=== PATIENT | male | born 1950 | race Caucasian/White ===

== ENCOUNTER 2017-02-16 14:02 | Emergency (ER) | payer OTHER, MEDICAID ==
[2017-02-16 14:19] VITALS: BMI 32.9
[2017-02-16] MEDS ORDERED: ASPIRIN PO ONE (14:19)
[2017-02-16] MEDS ORDERED: NITROSTAT SL PRN (14:19)
[2017-02-16] MEDS ORDERED: ASPIRIN 81 MG CHEWTAB ONE (14:22)
[2017-02-16] MEDS ORDERED: NS 1000 ML 1,000 ML ONE (14:26)
[2017-02-16 14:31] LABS: BASOPHILS # (AUTO) 0.1 X10^3/uL (0.0-0.1); BASOPHILS % (AUTO) 0.7 % (0.2-1.0); EOSINOPHILS # (AUTO) 0.1 x10^3/uL (0.0-0.2); EOSINOPHILS % (AUTO) 0.7 % (0.9-2.9); HEMATOCRIT 41.5 % (42.0-54.0); HEMOGLOBIN 14.1 g/dL (13.5-18.0); LYMPHOCYTES # (AUTO) 2.8 X10^3/uL (1.3-2.9); LYMPHOCYTES % (AUTO) 18.8 % (21.0-51.0); MEAN CORPUSCULAR HEMOGLOBIN 29.3 pg (27.0-34.0); MEAN CORPUSCULAR HGB CONC 34.1 g/dL (33.0-35.0); MEAN CORPUSCULAR VOLUME 85.9 fL (80.0-100.0); MEAN PLATELET VOLUME 7.2 fL (7.4-11.0); MONOCYTES # (AUTO) 0.8 x10^3/uL (0.3-0.8); MONOCYTES % (AUTO) 5.2 % (0.0-13.0); NEUTROPHILS % (AUTO) 74.6 % (42.0-75.0); PLATELET COUNT 335 X10^3/uL (150.0-450.0); RED BLOOD COUNT 4.83 X10^6/uL (4.7-6.0); RED CELL DISTRIBUTION WIDTH 13.4 % (11.6-16.5); WHITE BLOOD COUNT 14.7 X10^3/uL (3.6-10.0)
[2017-02-16] MEDS ORDERED: ATIVAN INJ 2 MG VIAL IVP ONE (14:40)
[2017-02-16] MEDS ORDERED: ATIVAN INJ 2 MG VIAL ONE (14:42)
[2017-02-16 14:46] LABS: BLOOD UREA NITROGEN 19 mg/dL (7-18); CALCIUM 9.7 mg/dL (8.5-10.1); CARBON DIOXIDE 21.5 mmol/L (21-32); CHLORIDE 99 mmol/L (98-107); COR NA(FOR HYPERGLY) 143 mmol/L (136-145); CREATININE 1.33 mg/dL (0.70-1.30); GLUCOSE 370 mg/dL (65-99); SODIUM 137 mmol/L (136-145); TROPONIN I < 0.02 ng/mL (0-1.5); eGFR BLACK RACES > 60 (>60); eGFR NON BLACK RACES 57 (>60)
[2017-02-16 14:50] LABS: ALANINE AMINOTRANSFERASE 47 Units/L (12-78); ALBUMIN 4.1 g/dL (3.4-5.0); ALKALINE PHOSPHATASE 80 Units/L (46-116); ASPARTATE AMINO TRANSFERASE 19 Units/L (15-37); CREATINE KINASE 45 Units/L (39-308); CREATINE KINASE MB < 1.0 ng/mL (0-4.0); MAGNESIUM 1.4 mg/dL (1.7-2.9); TOTAL PROTEIN 8.1 g/dL (6.4-8.2)
--- NOTE | 2017-02-16 14:51 | RAD ---
HISTORY: Chest pain Study: Single-view chest Comparison: July 12 2015 Findings: The trachea is midline. The cardiac silhouette is unremarkable. The lungs are clear without focal infiltrate or effusion. The bony thorax is unremarkable. IMPRESSION: 1. No acute cardiopulmonary disease. Reported By:
[2017-02-16 14:52] LABS: CKMB % 2.2 % (<4)
[2017-02-16] MEDS ORDERED: NS 1000 ML 1,000 ML IV SCH (15:00)
[2017-02-16 15:02] LABS: D DIMER 178 ng/mL (0-400)
[2017-02-16] MEDS ORDERED: ZOFRAN INJ 4 MG VIAL IVP ONE (15:02)
[2017-02-16] MEDS ORDERED: MORPHINE SULFATE INJ 2 MG IVP ONE (15:02)
[2017-02-16] MEDS ORDERED: ZOFRAN INJ 4 MG VIAL ONE (15:04)
[2017-02-16] MEDS ORDERED: MORPHINE SULFATE INJ 2 MG ONE (15:04)
--- NOTE | 2017-02-16 15:36 | DR.CP ---
HPI - Time Seen Time seen: 15:30 - PCP Primary Care Physician: edi - HPI Comment HPI Comment: PATIENT TOOK 81MG ASPRIN THIS AM. PAIN WAS GETTING WORSE AT HOME SO PATIENT CAME TO ED. NO FEVER. - Complaint Chief Complaint Doctor Comments: PRECORDIAL CHEST PRESSURE WITH SOB, WEAKNESS AND TINGLING IN FINGERS 1 HOUR AGO. Chief Complaint:: patient stated he was chest pain and both arms were hurting since he ate some bad turkey about a hour ago - Reviewed Nurses Notes Review: Yes - Source History Provided: Patient - Mode of Arrival Mode of Arrival: Ambulatory - Timing Onset of Chief Complaint: 02/16/17 Came on: Suddenly - Duration Duration: Constant Duration: Hours - Location Chest Pain Radiation Location: None - Context Onset: At rest Cardiac Risk Factors: Family History, Hyperlipidemia, HTN History of: Angina, Aspirin in last 24 hours (81MG) Prehospital Care: ASA (81MG AT HOME) - Quality Quality: Pressure like, Heavy - Severity Severity: Moderate - Modifying Factors Worsens: Nothing Impoves: NTG - Associated Signs and Symptoms Associated Signs and Symptoms: Shortness of Breath, Palpitations, Nausea/ Vomiting PMH - PMH Past Medical History: Yes Past Medical History: CVA, Diabetes, Hypertension Past Surgical History: Yes Surgical History: Unknown - Family History History of Family Medical Conditions: No - Social History Does patient currently use any type of tobacco product: No Have you used tobacco products in the last 12 months: No Type of Tobacco Use: None Does any household member use tobacco: No Alcohol Use: None Lives With: Family Lives Where: Home - infectious screening In the last 2 months have you had wt loss of >10#?: NO Have you had fever, night sweats or hemotysis?: No Have you traveled outside the country in the last 6 months?: No Isolation: Standard ROS - Review of Systems Constitutional: Weakness, Fatigue. negative: Chills, Diaphoresis Eyes: No Symptoms Reported. negative: Eye Pain, Discharge ENTM: negative: Ear Pain, Nose Discharge, Nose Congestion, Throat Pain Respiratoy: Short of Breath. negative: Productive Cough, Non-Productive Cough, Wheezing, Hemoptysis Cardiovascular: Chest Pain, Palpitations. negative: Edema Gastrointestinal/Abdominal: Nausea. negative: Abdominal Pain, Constipation, Diarrhea, Vomiting Genitourinary: No Symptoms Reported. negative: Dysuria, Frequency, Hematuria Neurological: Weakness, Dizziness. negative: Headache Musculoskeletal: Muscle Pain Integumentary: No Symptoms Reported Hematologic/Lymphatic: No Symptoms Reported Endocrine: No Symptoms Reported All Other Systems: Reviewed and Negative PE - Vitals Vitals: Temperature 98.6 F Pulse Rate [Left Brachial] 107 Pulse Rate 137 Respiratory Rate 17 Blood Pressure [Left Arm] 160/86 Blood Pressure [Right Arm] 122/66 Blood Pressure 170/85 O2 Sat by Pulse Oximetry 95 - General Limitations: No Limitations General Appearance: Alert, Other (NO RESPIRATORY DISTRESS AT REST.) - Head Head Exam: Atraumatic - Eyes Eye exam: Normal Appearance, PERRL, EOMI. negative: Scleral Icterus, Conjunctival Injection, Nystagmus, Periorbital Swelling, Periorbital Tenderness - ENT ENT Exam: Normal Oropharynx, Normal External Ear Exam, TM's Normal Bilaterally - Chest Chest Inspection: Symmetric Chest Wall Rise - Respiratory Respiratory Exam: Normal Lung Sounds Bilat Respiratory Exam: Bilateral Rhonchi, Lower Rhonchi - Cardiovascular Cardiovascular Exam: Regular Rate, Tachycardia, Normal Heart Sounds Pulse: Normal, Radial, Femoral Edema: Normal - Abdominal Exam Abdominal Exam: Normal Bowel Sounds, Soft. negative: Tenderness - Extremities Extremities Exam: Normal Inspection - Back Back Exam: Normal Inspection - Neurologic Neurological Exam: Alert, Oriented X3, CN II-XII Intact, Normal Gait, Reflexes Normal. negative: Motor Sensory Deficit - Psychiatric Psychiatric Exam: Anxious - Skin Skin Exam: Normal Color MDM - Additional Information Additional Information Obtained From: Family - Differential Diagnosis Differential Diagnosis: Angina, CHF, Myocardial Infarction, Pericarditis, Pneumonia, Pneumothorax Course - Treatment Treatment: SEE ORDERS - Consultation Consultation Comments: DISCUSS PATIENT WITH DR. ORELLANA, [place], [facility]. HE ACCEPTED PATIENT FOR TRANSFER TO [facility]. - Education/Counseling Education/Counseling: Patient, Family, Education Educated On: Treatment, Diagnosis ROR - Labs Reviewed Laboratory Results Reviewed?: Yes Result Diagrams: 02/16/17 14:15 02/16/17 14:15 Laboratory: WBC 14.7 X10^3/uL (3.6-10.0) H 02/16/17 14:15 RBC 4.83 X10^6/uL (4.7-6.0) 02/16/17 14:15 Hgb 14.1 g/dL (13.5-18.0) 02/16/17 14:15 Hct 41.5 % (42.0-54.0) L 02/16/17 14:15 MCV 85.9 fL (80.0-100.0) 02/16/17 14:15 MCH 29.3 pg (27.0-34.0) 02/16/17 14:15 MCHC 34.1 g/dL (33.0-35.0) 02/16/17 14:15 RDW 13.4 % (11.6-16.5) 02/16/17 14:15 Plt Count 335 X10^3/uL (150.0-450.0) 02/16/17 14:15 MPV 7.2 fL (7.4-11.0) L 02/16/17 14:15 Neut % 74.6 % (42.0-75.0) 02/16/17 14:15 Lymph % 18.8 % (21.0-51.0) L 02/16/17 14:15 Smyth % 5.2 % (0.0-13.0) 02/16/17 14:15 Eos % 0.7 % (0.9-2.9) L 02/16/17 14:15 Baso % 0.7 % (0.2-1.0) 02/16/17 14:15 Neut # 11.0 x10^3/uL (2.2-4.8) H 02/16/17 14:15 Lymph # 2.8 X10^3/uL (1.3-2.9) 02/16/17 14:15 Smyth # 0.8 x10^3/uL (0.3-0.8) 02/16/17 14:15 Eos # 0.1 x10^3/uL (0.0-0.2) 02/16/17 14:15 Baso # 0.1 X10^3/uL (0.0-0.1) 02/16/17 14:15 Absolute Nucleated RBC 0.0 /100WBC 02/16/17 14:15 INR Target Range - 02/16/17 14:15 INR 0.99 (0.8-1.3) 02/16/17 14:15 PTT 30.9 SECONDS (22.9-36.5) 02/16/17 14:15 PTT Comment - 02/16/17 14:15 D-Dimer 178 ng/mL (0-400) 02/16/17 14:15 Sodium 137 mmol/L (136-145) 02/16/17 14:15 Corrected Sodium 143 mmol/L (136-145) 02/16/17 14:15 Potassium 3.9 mmol/L (3.5-5.1) 02/16/17 14:15 Chloride 99 mmol/L (98-107) 02/16/17 14:15 Carbon Dioxide 21.5 mmol/L (21-32) 02/16/17 14:15 BUN 19 mg/dL (7-18) H 02/16/17 14:15 Creatinine 1.33 mg/dL (0.70-1.30) H 02/16/17 14:15 Est GFR (MDRD) Af Amer > 60 (>60) 02/16/17 14:15 Est GFR (MDRD) Non-Af 57 (>60) L 02/16/17 14:15 Glucose 370 mg/dL (65-99) H 02/16/17 14:15 Calcium 9.7 mg/dL (8.5-10.1) 02/16/17 14:15 Corrected Calcium TNP 02/16/17 14:15 Magnesium 1.4 mg/dL (1.7-2.9) L 02/16/17 14:15 Total Bilirubin 0.40 mg/dL (0.2-1.0) 02/16/17 14:15 AST 19 Units/L (15-37) 02/16/17 14:15 ALT 47 Units/L (12-78) 02/16/17 14:15 Alkaline Phosphatase 80 Units/L (46-116) 02/16/17 14:15 Creatine Kinase 45 Units/L (39-308) 02/16/17 14:15 CK-MB (CK-2) < 1.0 ng/mL (0-4.0) 02/16/17 14:15 CK/CKMB % Calc 2.2 % (<4) 02/16/17 14:15 Troponin I < 0.02 ng/mL (0-1.5) 02/16/17 14:15 Total Protein 8.1 g/dL (6.4-8.2) 02/16/17 14:15 Albumin 4.1 g/dL (3.4-5.0) 02/16/17 14:15 Globulin 4.0 g/dL (2.5-4.5) 02/16/17 14:15 Albumin/Globulin Ratio 1.0 Ratio (1.1-2.1) L 02/16/17 14:15 - XRAY XRAY Interpreted by: Radiologist XRAY Findings: REPORT DISCUSS WITH PATIENT. - EKG Rhythm: ST (EKG NOTED) - Diagnosis Discharge Problem: Tachycardia, Unstable angina Chest pain Qualifiers: Chest pain type: precordial pain Qualified Code(s): R07.2 - Precordial pain CAD (coronary artery disease) Qualifiers: Coronary Disease-Associated Artery/Lesion type: unspecified vessel or lesion type [place] vs. transplanted heart: [place] heart Associated angina: with unstable angina Qualified Code(s): I25.110 - Atherosclerotic heart disease of [place] coronary artery with unstable angina pectoris - Discharge Plan Disposition: XFER [facility] Condition: Stable - Follow ups/Referrals Follow ups/Referrals: Porfirio Ray [Primary Care Provider] - 3 days - Instructions
[2017-02-16 16:33] VITALS: BP 160/86
== END 2017-02-16 16:55 | disposition short-term general hospital (02) ==
LOC: ER 14:06
DX: R00.0 Tachycardia, unspecified (principal); I25.110 Atherosclerotic heart disease of native coronary artery with unstable angina pectoris; I20.0 Unstable angina; R07.2 Precordial pain
CPT/HCPCS: 36415; 71010; 80053; 82550; 82553; 83735; 84484; 85025; 85378; 85610; 85730; 93005; 93010; 96365; 96367; 96374; 96375; 99284; 99285; A4222; J2060; J2270; J2405

== ENCOUNTER → 2017-03-26 | Outpatient (CLI) | payer OTHER, MEDICAID ==
--- NOTE | 2017-03-26 15:50 | RAD ---
HISTORY: Pleural effusion Study: Chest two-view Comparison: February 16, 2017 Findings: The patient is undergone median sternotomy and CABG since the prior examination. The heart is enlarg ed. No congestive heart failure is noted. The emily are normal. The lungs are mildly hyperinflated bu t clear. No pleural effusions are identified. The bony thorax is unremarkable. IMPRESSION: Mild cardiomegaly without congestive heart failure Lungs hyperinflated but clear No definite pleural effusion identified. Reported By:
== END ==
LOC: RAD 15:11
DX: J90 Pleural effusion, not elsewhere classified (principal)
CPT/HCPCS: 71020

== ENCOUNTER → 2017-11-12 | Outpatient (CLI) | payer OTHER, MEDICAID ==
[2017-11-12 11:00] LABS: BASOPHILS # (AUTO) 0.1 X10^3/uL (0.0-0.1); BASOPHILS % (AUTO) 1.2 % (0.2-1.0); EOSINOPHILS # (AUTO) 0.2 x10^3/uL (0.0-0.2); EOSINOPHILS % (AUTO) 2.1 % (0.9-2.9); HEMATOCRIT 42.9 % (42.0-54.0); HEMOGLOBIN 14.7 g/dL (13.5-18.0); LYMPHOCYTES # (AUTO) 2.4 X10^3/uL (1.3-2.9); LYMPHOCYTES % (AUTO) 27.6 % (21.0-51.0); MEAN CORPUSCULAR HGB CONC 34.3 g/dL (33.0-35.0); MEAN CORPUSCULAR VOLUME 84.8 fL (80.0-100.0); MEAN PLATELET VOLUME 7.5 fL (7.4-11.0); MONOCYTES # (AUTO) 0.8 x10^3/uL (0.3-0.8); MONOCYTES % (AUTO) 9.1 % (0.0-13.0); NEUTROPHILS # (AUTO) 5.2 x10^3/uL (2.2-4.8); PLATELET COUNT 314 X10^3/uL (150.0-450.0); RED BLOOD COUNT 5.06 X10^6/uL (4.7-6.0); RED CELL DISTRIBUTION WIDTH 13.1 % (11.6-16.5); WHITE BLOOD COUNT 8.7 X10^3/uL (3.6-10.0)
[2017-11-12 11:11] LABS: ALANINE AMINOTRANSFERASE 41 Units/L (12-78); ALKALINE PHOSPHATASE 87 Units/L (46-116); ASPARTATE AMINO TRANSFERASE 25 Units/L (15-37); BILIRUBIN,DIRECT < 0.05 mg/dL (0-0.2); TOTAL PROTEIN 8.1 g/dL (6.4-8.2)
[2017-11-17 06:32] LABS: HCV VIRAL LOG <1.2 log IU
== END ==
LOC: LAB 10:26
PROVIDERS: ATTEND Internal Medicine Gastroenterology
DX: B18.2 Chronic viral hepatitis C (principal); Z86.010 Personal history of colon polyps
CPT/HCPCS: 36415; 80076; 82270; 85025; 87522

== ENCOUNTER → 2017-12-10 | Outpatient (CLI) | payer OTHER, MEDICAID ==
--- NOTE | 2017-12-10 12:47 | MRI ---
HISTORY: Low back pain, lumbar spondylosis with radiculopathy Study: MRI lumbar spine without contrast Comparison: 08/24/2013 Technique: Multiplanar multi-sequence MRI of the lumbar spine was obtained. Sagittal T1, sagittal T2 , and stir weighted images, axial T1, and axial T2 images were obtained. Findings: Imaging of the lumbar spine demonstrates mild, grade 1, retrolisthesis of L3 on L4 and L5 on S1, like ly secondary to advanced facet arthropathy at these levels. Vertebral body height is maintained throu ghout. No acute or chronic compression fracture is visualized. There is severe loss of disc space hei ght at the L5-S1 level with associated degenerative endplate change and mild reactive edema. Mild los s of disc space height is noted at the remaining lumbar levels. There is multilevel mild marginal ost eophytosis. The conus terminates at the L1 level. Evaluation of the pre and paravertebral soft tissue s is unremarkable. Incidental note is made of multiple bilateral renal cysts. T12 -- L1: The T12-L1 level is unremarkable. L1 -- L2: At the L1-L2 level there is a right lateral recess disc protrusion superimposed upon a broa d-based disc bulge as well as mild facet hypertrophy, resulting in [id number] neuroforaminal co mpromise on the right and very mild neuroforaminal compromise on the left but no significant canal st enosis. L2 -- L3: At the L2-L3 level there is facet hypertrophy and very mild broad-based disc ridging, resul ting in mild bilateral neuroforaminal compromise but no significant canal stenosis. L3 -- L4: At the L3-L4 level there is a broad-based disc bulge as well as facet hypertrophy and ligam entum flavum thickening, resulting in moderate canal stenosis as well as [id number] neuroforami nal compromise on the left and mild neuroforaminal compromise on the right. L4 -- L5: At the L4-L5 level there is a broad-based disc bulge as well as advanced facet hypertrophy and ligamentum flavum thickening, all resulting in severe canal stenosis as well as [id number] bilateral neuroforaminal compromise. An annular fissure is present. A 5-6 mm synovial cyst is inciden tally noted along the anterolateral aspect of the right facet joint at this level but does not contri bute to neuroforaminal compromise. L5 -- S1: At the L5-S1 level there is a broad-based disc bulge as well as facet hypertrophy and ligam entum flavum thickening which, along with listhesis at this level, is resulting in moderate canal paige nosis as well as moderate to severe neuroforaminal compromise on the left and moderate neuroforaminal compromise on the right. IMPRESSION: 1. Multilevel degenerative disc disease and facet arthropathy, resulting in multilevel varying degree s of neuroforaminal compromise and canal stenoses as detailed above. Reported By:
== END | disposition home or self-care (01) | DRG 552 ==
LOC: RAD 09:57
PROVIDERS: ATTEND Internal Medicine
DX: M47.26 Other spondylosis with radiculopathy, lumbar region (principal); M51.37 Other intervertebral disc degeneration, lumbosacral region
CPT/HCPCS: 72148

== ENCOUNTER 2017-12-29 22:37 | Emergency (ER) | payer OTHER, MEDICAID ==
[2017-12-29] MEDS ORDERED: NS 1000 ML 1,000 ML ONE ×2 (22:39→23:49)
[2017-12-29] MEDS ORDERED: ZOFRAN INJ 4 MG VIAL ONE (22:39)
[2017-12-29] MEDS ORDERED: NS 1000 ML 1,000 ML IV ONE ×2 (22:43→23:49)
[2017-12-29 22:44] VITALS: BP 164/89; BMI 29.0
[2017-12-29] MEDS ORDERED: ZOFRAN INJ 4 MG VIAL IVP ONE (22:44)
[2017-12-29 23:02] LABS: BASOPHILS # (AUTO) 0.2 X10^3/uL (0.0-0.1); BASOPHILS % (AUTO) 0.8 % (0.2-1.0); EOSINOPHILS % (AUTO) 0.2 % (0.9-2.9); HEMATOCRIT 41.3 % (42.0-54.0); HEMOGLOBIN 14.1 g/dL (13.5-18.0); LYMPHOCYTES # (AUTO) 1.6 X10^3/uL (1.3-2.9); LYMPHOCYTES % (AUTO) 8.5 % (21.0-51.0); MEAN CORPUSCULAR HEMOGLOBIN 28.7 pg (27.0-34.0); MEAN CORPUSCULAR HGB CONC 34.2 g/dL (33.0-35.0); MEAN CORPUSCULAR VOLUME 83.8 fL (80.0-100.0); MEAN PLATELET VOLUME 6.9 fL (7.4-11.0); MONOCYTES # (AUTO) 0.5 x10^3/uL (0.3-0.8); MONOCYTES % (AUTO) 2.8 % (0.0-13.0); NEUTROPHILS # (AUTO) 16.9 x10^3/uL (2.2-4.8); NEUTROPHILS % (AUTO) 87.7 % (42.0-75.0); PLATELET COUNT 346 X10^3/uL (150.0-450.0); RED BLOOD COUNT 4.93 X10^6/uL (4.7-6.0); RED CELL DISTRIBUTION WIDTH 13.2 % (11.6-16.5); WHITE BLOOD COUNT 19.3 X10^3/uL (3.6-10.0)
--- NOTE | 2017-12-29 23:06 | DR.GENAD ---
HPI - PCP Primary Care Physician: BING - Complaint/Symptoms Chief Complaint Doctors Comments: Patient states that he was doing fine today. He was outside all day cutting the yard and cleaning up and he did not get sick until he ate the chopped ham sandwich and drank milk. He states that he has been vomiting every since. Chief Complaint:: PT C/O N/V AFTER EATING SOME CHOPPED HAM TODAY - Source History Provided: Patient - Mode of Arrival Mode of Arrival: EMS - Timing Onset of Chief Complaint: 12/29/17 PMH - PMH Past Medical History: Yes Past Medical History: Coronary Artery Disease, CVA, Diabetes, Hypertension, MD Past Surgical History: Yes Surgical History: CABG/Valve Surgery - Family History History of Family Medical Conditions: No - Social History Does any household member use tobacco: No Alcohol Use: None Do you use any recreational Drugs:: No Lives With: Family Lives Where: Home - infectious screening In the last 2 months have you had wt loss of >10#?: NO Have you had fever, night sweats or hemotysis?: No Have you traveled outside the country in the last 6 months?: No Isolation: Standard ROS - Review of Systems Eyes: No Symptoms Reported ENTM: No Symptoms Reported Respiratoy: No Symptoms Reported Cardiovascular: No Symptoms Reported Gastrointestinal/Abdominal: No Symptoms Reported Genitourinary: No Symptoms Reported Neurological: No Symptoms Reported Musculoskeletal: No Symptoms Reported Integumentary: No Symptoms Reported Hematologic/Lymphatic: No Symptoms Reported Endocrine: No Symptoms Reported Psychiatric: No Symptoms Reported All Other Systems: Reviewed and Negative PE - Vital Signs Vitals: Temperature 97.1 F Pulse Rate 99 Respiratory Rate 16 Blood Pressure [Left Arm] 160/86 Blood Pressure [Right Arm] 122/66 Blood Pressure 164/89 O2 Sat by Pulse Oximetry 97 - General General Appearance: Alert, In No Apparent Distress, Anxious - Head Head Exam: Normal Inspection - Eyes Eye exam: Normal Appearance, PERRL, EOMI - ENT ENT Exam: Mucous Membranes Dry External Ear Exam: Normal External Inspection TM/Canal Exam: Bilateral Normal Nose Exam: Normal Nose Exam Mouth Exam: Normal Inspection Throat Exam: Normal Inspection - Neck Neck Exam: Normal Inspection - Chest Chest Inspection: Normal Inspection - Respiratory Respiratory Exam: Normal Lung Sounds Bilat Respiratory Exam: Bilateral Clear to Auscultation - Cardiovascular Cardiovascular Exam: Regular Rate, Normal Rhythm - Abdominal Exam Abdominal Exam: Normal Inspection Abdominal Tenderness: negative: RUQ, RLQ, LUQ, LLQ, Epigastrium, Suprapubic, Diffuse, Mild, Moderate, Severe, Other - Extremities Extremities Exam: Normal Inspection, Full ROM - Back Back Exam: Normal Inspection - Neurologic Neurological Exam: Alert, Oriented X3, CN II-XII Intact - Psychiatric Psychiatric Exam: Normal Affect, Normal Mood - Skin Skin Exam: Warm, Dry, Intact Course - Reevaluation 1st: Improved - Education/Counseling Educated On: Treatment, Diagnosis, Prognosis ROR - Labs Reviewed Result Diagrams: 12/29/17 22:55 12/29/17 22:55 Laboratory: WBC 19.3 X10^3/uL (3.6-10.0) H 12/29/17 22:55 RBC 4.93 X10^6/uL (4.7-6.0) 12/29/17 22:55 Hgb 14.1 g/dL (13.5-18.0) 12/29/17 22:55 Hct 41.3 % (42.0-54.0) L 12/29/17 22:55 MCV 83.8 fL (80.0-100.0) 12/29/17 22:55 MCH 28.7 pg (27.0-34.0) 12/29/17 22:55 MCHC 34.2 g/dL (33.0-35.0) 12/29/17 22:55 RDW 13.2 % (11.6-16.5) 12/29/17 22:55 Plt Count 346 X10^3/uL (150.0-450.0) 12/29/17 22:55 MPV 6.9 fL (7.4-11.0) L 12/29/17 22:55 Neut % (Auto) 87.7 % (42.0-75.0) H 12/29/17 22:55 Lymph % (Auto) 8.5 % (21.0-51.0) L 12/29/17 22:55 Snyder % (Auto) 2.8 % (0.0-13.0) 12/29/17 22:55 Eos % (Auto) 0.2 % (0.9-2.9) L 12/29/17 22:55 Baso % (Auto) 0.8 % (0.2-1.0) 12/29/17 22:55 Neut # (Auto) 16.9 x10^3/uL (2.2-4.8) H 12/29/17 22:55 Lymph # (Auto) 1.6 X10^3/uL (1.3-2.9) 12/29/17 22:55 Snyder # (Auto) 0.5 x10^3/uL (0.3-0.8) 12/29/17 22:55 Eos # (Auto) 0.0 x10^3/uL (0.0-0.2) 12/29/17 22:55 Baso # (Auto) 0.2 X10^3/uL (0.0-0.1) H 12/29/17 22:55 Absolute Nucleated RBC 0.0 /100WBC 12/29/17 22:55 Sodium 137 mmol/L (136-145) 12/29/17 22:55 Corrected Sodium 144 mmol/L (136-145) 12/29/17 22:55 Potassium 4.0 mmol/L (3.5-5.1) 12/29/17 22:55 Chloride 99 mmol/L (98-107) 12/29/17 22:55 Carbon Dioxide 25.0 mmol/L (21-32) 12/29/17 22:55 BUN 18 mg/dL (7-18) 12/29/17 22:55 Creatinine 1.07 mg/dL (0.70-1.30) 12/29/17 22:55 Est GFR (MDRD) Af Amer > 60 (>60) 12/29/17 22:55 Est GFR (MDRD) Non-Af > 60 (>60) 12/29/17 22:55 Glucose 374 mg/dL (65-99) H 12/29/17 22:55 Calcium 8.9 mg/dL (8.5-10.1) 12/29/17 22:55 Corrected Calcium TNP 12/29/17 22:55 Total Bilirubin 0.30 mg/dL (0.2-1.0) 12/29/17 22:55 AST 13 Units/L (15-37) L 12/29/17 22:55 ALT 33 Units/L (12-78) 12/29/17 22:55 Alkaline Phosphatase 105 Units/L (46-116) 12/29/17 22:55 C-Reactive Protein 1.50 mg/L (0-3.0) 12/29/17 22:55 Total Protein 8.2 g/dL (6.4-8.2) 12/29/17 22:55 Albumin 4.0 g/dL (3.4-5.0) 12/29/17 22:55 Globulin 4.2 g/dL (2.5-4.5) 12/29/17 22:55 Albumin/Globulin Ratio 1.0 Ratio (1.1-2.1) L 12/29/17 22:55 Amylase 43 Units/L (25-115) 12/29/17 22:55 Lipase 57 Units/L (73-393) L 12/29/17 22:55 - Diagnosis Discharge Problem: Gastroenteritis - Discharge Plan Condition: Stable - Follow ups/Referrals Follow ups/Referrals: Porfiiro Ray [Primary Care Provider] - 3 days - Instructions
[2017-12-29 23:14] LABS: ALANINE AMINOTRANSFERASE 33 Units/L (12-78); ALKALINE PHOSPHATASE 105 Units/L (46-116); AMYLASE 43 Units/L (25-115); ASPARTATE AMINO TRANSFERASE 13 Units/L (15-37); BLOOD UREA NITROGEN 18 mg/dL (7-18); CALCIUM 8.9 mg/dL (8.5-10.1); CHLORIDE 99 mmol/L (98-107); COR NA(FOR HYPERGLY) 144 mmol/L (136-145); CREATININE 1.07 mg/dL (0.70-1.30); LIPASE 57 Units/L (73-393); SODIUM 137 mmol/L (136-145); TOTAL PROTEIN 8.2 g/dL (6.4-8.2); eGFR BLACK RACES > 60 (>60); eGFR NON BLACK RACES > 60 (>60)
[2017-12-29] MEDS ORDERED: HumuLIN R SUBCUT PRN (23:42)
[2017-12-29] MEDS ORDERED: HumuLIN R ONE ×2 (23:46)
[2017-12-30] MEDS ORDERED: ANTIVERT TAB 25 MG PO ONE (00:49)
[2017-12-30] MEDS ORDERED: ANTIVERT TAB 25 MG ONE (00:50)
[2017-12-30] MEDS ORDERED: ZOFRAN TAB 4 MG PO PRN (02:04)
[2017-12-30] MEDS ORDERED: COMPAZINE INJ IM ONE (05:59)
[2017-12-30] MEDS ORDERED: COMPAZINE INJ ONE (06:00)
[2017-12-30] MEDS ORDERED: SNACK - Diabetic Appropriate PO SCH (20:00)
== END 2017-12-30 06:30 | disposition home or self-care (01) ==
LOC: ER 22:40
DX: K52.89 Other specified noninfective gastroenteritis and colitis (principal)
CPT/HCPCS: 36415; 80053; 82150; 83690; 85025; 86140; 96365; 96367; 96372; 96374; 96375; 99282; 99283; A4222; J0780; J1815; J2405